=== PATIENT | male | born 1990 | race Caucasian/White ===

== ENCOUNTER 2021-02-22 20:00 | Emergency (ER) | payer BC ==
[~2021-02-22] VITALS: Ht 175.3 cm; Wt 154.2 kg
[2021-02-22 21:17] LABS: BASOPHILS # (AUTO) 0.1 (0.0-0.1); BASOPHILS % 0.7 % (0.0-1.0); EOSINOPHILS # (AUTO) 0.2 (0.0-0.4); EOSINOPHILS % 2.7 % (0.0-6.0); HEMATOCRIT 40.7 % (38.2-49.6); HEMOGLOBIN 12.5 g/dL (14.0-18.0); LYMPHOCYTES # (AUTO) 1.7 (1.0-3.2); LYMPHOCYTES % 21.9 % (18.0-39.1); MEAN CORPUSCULAR HEMOGLOBIN 25.4 pg (28-32); MEAN CORPUSCULAR HGB CONC 30.7 g/dL (31-35); MEAN CORPUSCULAR VOLUME 82.7 fL (81-99); MONOCYTES # (AUTO) 0.8 (0.2-0.8); MONOCYTES % 10.3 % (4.4-11.3); NEUTROPHILS # (AUTO) 4.8 (2.1-6.9); NEUTROPHILS % 63.9 % (38.7-80.0); PLATELET COUNT 346 x10e3/uL (140-360); RED BLOOD COUNT 4.92 x10e6/uL (4.3-5.7); RED CELL DISTRIBUTION WIDTH 13.7 % (11.7-14.4)
[2021-02-22 21:35] LABS: ANION GAP 15.1 mmol/L (8-16); CALCIUM 9.1 mg/dL (8.4-10.2); CREATININE, SERUM 0.79 mg/dL (0.72-1.25); POTASSIUM 4.1 mmol/L (3.5-5.1)
[2021-02-22] MEDS ORDERED: IOPAMIDOL 370 MG/ML 200 ML INFUS..BTL INJ ONE (22:18)
[2021-02-22] MEDS ORDERED: SODIUM CHLORIDE 0.9% 50ML 50 ML ONE (22:18)
[2021-02-22] MEDS ORDERED: DOXYCYCLINE HY100 MG PO (23:59)
[2021-02-23 00:11] VITALS: BP 132/65
== END 2021-02-23 00:19 | disposition home or self-care (01) ==
LOC: ER 21:22
DX: R50.9 Fever, unspecified (principal); R05 Cough; J18.9 Pneumonia, unspecified organism
CPT/HCPCS: 36415; 71260; 80053; 82550; 82553; 84484; 85025; 99284; Q9967; U0002